=== PATIENT | female | born 1985 | race Asian ===

== ENCOUNTER 2017-10-09 17:33 | Emergency (ER) | payer OTHER ==
[~2017-10-09] VITALS: Ht 175.3 cm; Wt 58.9 kg
[2017-10-09 17:41] VITALS: Ht 175.3 cm; Wt 58.9 kg
[2017-10-09] MEDS ORDERED: ACETAMINOPHEN 500 MG TAB PO STA (20:05)
[2017-10-09] MEDS ORDERED: SOD CHLORIDE 0.9% 1,000 ML IV ONE (20:30)
[2017-10-09] MEDS ORDERED: OSELTAMIVIR 75 MG CAP PO ONE (20:30)
[2017-10-09] MEDS ORDERED: SODI126M NASAL (21:37)
[2017-10-09] MEDS ORDERED: GUAI-637 PO (21:37)
[2017-10-09] MEDS ORDERED: ACET500C5 PO (21:37)
[2017-10-09] MEDS ORDERED: OSLT75C PO (21:37)
[2017-10-09] MEDS ORDERED: IBUP-1542 PO (21:37)
[2017-10-09 22:20] VITALS: BP 109/63; PULSE 75; RESP 20; TEMP 98.1
--- NOTE | 2017-10-10 06:11 | ERD ---
ER Documentation Chief Complaint Chief Complaint FEVER , COUGH , HEADCAHE X 1 DAY HPI 31-year-old female complaining of fever, cough, headache, and body ache 1 day. Patient also had nausea and diarrhea, but denies vomiting or abdominal pain. She took Excedrin, NyQuil, and Sudafed for her symptoms. Last dose was at 9 AM. Denies shortness of breath. ROS All systems reviewed and are negative except as per history of present illness. Medications Home Meds Active Scripts Guaifenesin* (Robitussin*) 100 Mg/5 Ml Syrup, 200 MG PO Q4H Y for COUGH, #120 ML Prov:JOHANA REECE. GYROSCOPIC INSTRUMENT MECHANIC 10/09/17 Sodium Chloride (Saline Nasal Mist) 126 Ml Mist, 2 SPRAY NASAL Q2H Y for NASAL CONGESTION, #1 BOTTLE Prov:JOHANA REECE. GYROSCOPIC INSTRUMENT MECHANIC 10/09/17 Ibuprofen* (Motrin*) 600 Mg Tab, 600 MG PO Q6H Y for PAIN AND OR ELEVATED TEMP, #30 TAB Prov:JOHANA REECE. GYROSCOPIC INSTRUMENT MECHANIC 10/09/17 Acetaminophen* (Tylophen*) 500 Mg Capsule, 1 CAP PO Q6H Y for PAIN AND OR ELEVATED TEMP, #20 CAP Prov:JOHANA REECE. GYROSCOPIC INSTRUMENT MECHANIC 10/09/17 Oseltamivir Phosphate* (Tamiflu*) 75 Mg Capsule, 75 MG PO BID for 5 Days, CAP Prov:JOHANA REECE. GYROSCOPIC INSTRUMENT MECHANIC 10/09/17 Allergies Allergies: Coded Allergies: ibuprofen (Verified Adverse Reaction, Intermediate, UPSET STOMACH, ) PMhx/Soc Medical and Surgical Hx: pt denies Medical Hx History of Surgery: Yes (APPY, SINUS/NOSE) Anesthesia Reaction: No Hx Neurological Disorder: No Hx Respiratory Disorders: No Hx Cardiac Disorders: No Hx Psychiatric Problems: No Hx Miscellaneous Medical Probl: No Hx Alcohol Use: No Hx Substance Use: No Hx Tobacco Use: No Smoking Status: Never smoker Physical Exam Vitals Vital Signs Date Time Temp Pulse Resp B/P Pulse Ox O2 Delivery O2 Flow Rate FiO2 10/09/17 22:20 98.1 75 20 109/63 99 Room Air 10/09/17 17:41 102.8 112 18 119/67 100 Physical Exam General: Well-developed, well-nourished, conscious and coherent. Patient appears uncomfortable. Skin: Warm and dry without rash, good texture and turgor Head: Normocephalic without evidence of trauma Eyes: Sclera and conjunctivae normal; pupils equal, round, and reactive to light; extraocular movements are intact Ears: Canals are patent. Tympanic membranes are clear Nose/Face: Nasal mucosa erythematous and swollen. Mouth/throat: Mucous membranes are moist. Posterior pharynx clear without erythema or exudates Neck: Supple without meningismus or adenopathy. Carotids are equal. Trachea midline. No bruits or JVD Chest: Normal AP diameter. Good expansion without retractions. Nontender. Lungs are clear to auscultate bilaterally with good tidal volume Heart: Regular rate and rhythm. No murmur, rub, or gallops heard Abdomen: Soft and nontender without masses, guarding, or rebound. Bowel sounds are active. No hepatosplenomegaly Extremities: Full range of motion. Good strength bilaterally. No clubbing, cyanosis, or edema. Peripheral pulses are intact. Sensation intact Neuro: Alert and oriented 4, GCS 15. Cranial nerves grossly intact. Motor and sensory exams nonfocal. Moves all extremities. Speech clear. Gait normal Results 24 hrs Current Medications Medications (Trade) Dose Ordered Sig/Karthik Route PRN Reason Start Time Stop Time Status Last Admin Dose Admin Acetaminophen (Tylenol Tab) 1,000 mg ONCE STAT PO 10/09/17 20:05 10/09/17 20:06 DC 10/09/17 20:21 Oseltamivir Phosphate 75 mg 75 mg ONCE ONCE PO 10/09/17 20:30 10/09/17 20:31 DC 10/09/17 20:21 Sodium Chloride (NS) 1,000 ml @ 1,000 mls/hr Q1H ONCE IV 10/09/17 20:30 10/09/17 21:29 DC 10/09/17 20:41 Procedures/MDM 31-year-old female presented ED with fever, cough, headache, and body ache 1 day. Patient symptoms exam findings are consistent with flulike illness. Since her symptom onset has been less than 72 hours, I feel Tamiflu could be of benefit for the patient. Patient is given Tylenol, Tamiflu, and 1 L normal saline bolus in the ED. After medications, patient reports feeling much better. Patient is in no respiratory distress. Lungs are clear to auscultate. I doubt that patient has pneumonia or bronchitis. Patient appears well, stable for discharge and outpatient management. Medical decision making shared with patient and family. Education provided to patient and family. Patient and family expressed understanding of the plan. Medications on discharge: Tylenol, Tamiflu, saline nasal spray, ibuprofen, Robitussin. Follow-up: Primary care provider in 2-3 days or return to ED if worse. Disclaimer: Inadvertent spelling and grammatical errors are likely due to EHR/ dictation software use and do not reflect on the overall quality of patient care. Also, please note that the electronic time recorded on this note does not necessarily reflect the actual time of the patient encounter. Departure Diagnosis: Primary Impression: Influenza-like symptoms Condition: Stable Patient Instructions: Influenza (Adult) Referrals: [facility] YOU HAVE RECEIVED A MEDICAL SCREENING EXAM AND THE RESULTS INDICATE THAT YOU DO NOT HAVE A CONDITION THAT REQUIRES URGENT TREATMENT IN THE EMERGENCY DEPARTMENT. FURTHER EVALUATION AND TREATMENT OF YOUR CONDITION CAN WAIT UNTIL YOU ARE SEEN IN YOUR DOCTORS OFFICE WITHIN THE NEXT 1-2 DAYS. IT IS YOUR RESPONSIBILITY TO MAKE AN APPOINTMENT FOR FOLOW-UP CARE. IF YOU HAVE A PRIMARY DOCTOR --you should call your primary doctor and schedule an appointment IF YOU DO NOT HAVE A PRIMARY DOCTOR YOU CAN CALL OUR PHYSICIAN REFERRAL HOTLINE AT IF YOU CAN NOT AFFORD TO SEE A PHYSICIAN YOU CAN CHOSE FROM THE FOLLOWING [facility] CLINICS [facility] [address] [facility] [facility] [address] [facility] [facility] [address] [facility] [facility] [address] [facility]. [facility] [address] [facility] [facility]. [address] Additional Instructions: Call your primary care doctor TOMORROW for an appointment during the next 2-3 days.See the doctor sooner or return here if your condition worsens before your appointment time. JOHANA REECE NP Oct 10, 2017 06:11
== END 2017-10-09 22:39 | disposition home or self-care (01) ==
LOC: FTE 17:33
DX: R50.9 Fever, unspecified (principal); R05 Cough; R51 Headache
CPT/HCPCS: 99284; J7030